=== PATIENT | female | born 1940 | race Caucasian/White ===

== ENCOUNTER 2018-06-20 14:11 | Inpatient (IN) | payer MEDICARE, MEDICAID ==
[~2018-06-20] VITALS: Ht 149.9 cm; Wt 74.7 kg
[2018-06-20] MEDS ORDERED: RIVA15T PO (14:31)
[2018-06-20] MEDS ORDERED: AMLO-511 PO (14:31)
[2018-06-20] MEDS ORDERED: METO25 PO (14:31)
[2018-06-20] MEDS ORDERED: IOVERSOL 350 MG/ML 100 ML VIAL ONE (16:29)
[2018-06-20] MEDS ORDERED: SODIUM CHLORIDE 0.9% 0 ML ONE (16:29)
[2018-06-20 17:44] LABS: BASOPHILS % (AUTO) 0.4 % (0.0-2.0); EOSINOPHILS % (AUTO) 0 % (1.0-6.0); HEMATOCRIT 45.6 % (36-46); LYMPHOCYTES # (AUTO) 0.6 K/uL (1.0-4.8); LYMPHOCYTES % (AUTO) 6.5 % (22.0-44.0); MEAN CORPUSCULAR HEMOGLOBIN 27.7 pg (26.0-34.0); MEAN CORPUSCULAR HGB CONC 32.9 G/dL (31.0-37.0); MEAN CORPUSCULAR VOLUME 84 fL (80-100); MONOCYTES # (AUTO) 0.4 K/uL (0.1-1.0); MONOCYTES % (AUTO) 4.2 % (2.0-9.0); NEUTROPHILS # (AUTO) 8.8 K/uL (1.8-7.7); PLATELET COUNT (AUTO) 213 K/uL (150-450); RED BLOOD CELL COUNT(AUTO) 5.41 MIL/uL (4.00-5.20)
[2018-06-20 17:45] LABS: NEUTROPHILS % (AUTO) 88.9 % (40.0-70.0)
[2018-06-20 17:48] LABS: CALCIUM, TOTAL 9.2 mg/dL (8.8-10.5); CREATININE 1.67 mg/dL (0.60-1.30); POTASSIUM 5.6 mmol/L (3.5-5.1)
[2018-06-20 17:56] LABS: ALBUMIN 3.6 g/dL (3.4-5.0); BILIRUBIN,TOTAL 0.7 mg/dL (0.1-1.0); TOTAL PROTEIN, SERUM 7.8 g/dL (6.4-8.2)
[2018-06-20] MEDS ORDERED: SODIUM CHLORIDE 0.9% 1,000 ML IV ONE ×2 (18:00→18:15)
[2018-06-20 18:23] LABS: GLUCOSE,POINT OF CARE 104 MG/DL (70-110)
[2018-06-20 18:26] LABS: APPEARANCE,URINE CLOUDY (CLEAR); BILIRUBIN,URINE NEGATIVE (NEGATIVE); GLUCOSE, URINE (UA) NEGATIVE (NEGATIVE); KETONES,URINE NEGATIVE (NEGATIVE); LEUKOCYTE ESTERASE ,URINE NEGATIVE (NEGATIVE); NITRATE,URINE NEGATIVE (NEGATIVE); OCCULT BLOOD,URINE NEGATIVE (NEGATIVE); PH,URINE 5.5 (5.0-8.0); PROTEIN,URINE SEE CONFIRM (NEGATIVE)
[2018-06-20 18:29] LABS: SULFOSALICYLIC ACID,URINE 3+ (Negative)
[2018-06-20 18:30] LABS: BACTERIA,URINE Few /HPF (None Seen); RBC,URINE 0-2 /HPF (0-2); SQUAMOUS EPITHELIAL CELL,UR Many /LPF (None Seen)
[2018-06-20] MEDS ORDERED: DiphenhydrAMINE HCL 50 MG/ML VIAL IVP ONE (18:45)
[2018-06-20] MEDS ORDERED: FUROSEMIDE 40 MG/4 ML VIAL IVP ONE (18:45)
[2018-06-20] MEDS ORDERED: LORazepam 2 MG/ML VIAL IVP ONE (19:45)
[2018-06-20 19:47] LABS: INFLUENZA TYPE A NEGATIVE FOR TYPE A (NEGATIVE); INFLUENZA TYPE B NEGATIVE FOR TYPE B (NEGATIVE)
[2018-06-20 21:32] VITALS: BP 136/92
[2018-06-20] MEDS ORDERED: ONDANSETRON HCL 4 MG/2 ML VIAL IVP PRN (21:45)
[2018-06-20] MEDS ORDERED: HYDROCODONE/ACETAMINOPHEN 5-325 MG TABLET PO PRN (21:45)
[2018-06-20] MEDS ORDERED: MORPHINE SULFATE 4 MG/ML SYRINGE IVP PRN (21:45)
[2018-06-20] MEDS ORDERED: MAGNESIUM HYDROXIDE SUSPENSION 30 ML UDCUP PO PRN (21:45)
[2018-06-20] MEDS ORDERED: BISACODYL 10 MG RECTAL RECTAL SUPPOSITORY PR PRN (21:45)
[2018-06-20] MEDS ORDERED: ACETAMINOPHEN 325 MG TABLET PO PRN (21:45)
[2018-06-20] MEDS ORDERED: ZOLPIDEM TARTRATE 5 MG TABLET PO PRN (21:45)
[2018-06-20] MEDS ORDERED: SODIUM POLYSTYRENE SULFONATE 15 GM/60 ML SUSPENSION BOTTLE PO ONE (22:00)
[2018-06-20] MEDS ORDERED: SODIUM POLYSTYRENE SULFONATE 15 GM/60 ML SUSPENSION BOTTLE PR ONE (23:30)
[2018-06-21] MEDS ORDERED: HEPARIN SODIUM,PORCINE 5,000 UNITS/ML VIAL SQ SCH
[2018-06-21 00:15] VITALS: BP 129/74
[2018-06-21] MEDS ORDERED: HALOPERIDOL LACTATE 5 MG/ML VIAL IM PRN (00:30)
[2018-06-21 04:34] VITALS: BP 146/94
[2018-06-21 06:28] LABS: BASOPHILS % (AUTO) 0.1 % (0.0-2.0); EOSINOPHILS % (AUTO) 0 % (1.0-6.0); HEMATOCRIT 43.2 % (36-46); HEMOGLOBIN 14.6 g/dL (12.0-16.0); LYMPHOCYTES # (AUTO) 0.5 K/uL (1.0-4.8); LYMPHOCYTES % (AUTO) 3.5 % (22.0-44.0); MEAN CORPUSCULAR HEMOGLOBIN 28.9 pg (26.0-34.0); MEAN CORPUSCULAR HGB CONC 33.8 G/dL (31.0-37.0); MEAN CORPUSCULAR VOLUME 85 fL (80-100); MONOCYTES # (AUTO) 0.5 K/uL (0.1-1.0); NEUTROPHILS # (AUTO) 12.6 K/uL (1.8-7.7); PLATELET COUNT (AUTO) 172 K/uL (150-450); RED BLOOD CELL COUNT(AUTO) 5.05 MIL/uL (4.00-5.20); RED CELL DISTRIBUTION WIDTH 14.9 % (11.5-14.5)
[2018-06-21 06:31] LABS: NEUTROPHILS % (AUTO) 92.4 % (40.0-70.0)
[2018-06-21 06:56] LABS: CALCIUM, TOTAL 8.8 mg/dL (8.8-10.5); CHOL/HDL RATIO 3.3 (3.9-5.7); CREATININE 2.15 mg/dL (0.60-1.30); POTASSIUM 5.2 mmol/L (3.5-5.1); THYROID STIMULATING HORMONE 1.46 uIU/mL (0.36-3.74)
[2018-06-21] MEDS ORDERED: SODIUM POLYSTYRENE SULFONATE 15 GM/60 ML SUSPENSION BOTTLE PO ONE ×2 (08:15→10:15)
[2018-06-21] MEDS: METOPROLOL TARTRATE 25 MG TABLET PO SCH (08:48)
[2018-06-21] MEDS: DOCUSATE SODIUM 100 MG CAPSULE PO SCH ×2 (08:48→20:35)
[2018-06-21] MEDS: AmLODIPine BESYLATE 5 MG TABLET PO SCH (08:48)
[2018-06-21] MEDS: PANTOPRAZOLE SODIUM 40 MG DR TABLET PO SCH (08:48)
[2018-06-21] MEDS ORDERED: FUROSEMIDE 40 MG/4 ML VIAL IVP SCH (09:00)
[2018-06-21 09:26] VITALS: BP 154/60
[2018-06-21 11:22] VITALS: BP 132/73
[2018-06-21 15:25] VITALS: BP 120/81
[2018-06-21 16:57] LABS: ABG A-A DIFF O2 33.9 mmHg (10-20.0); ABG BASE EXCESS 0.1 mmol/L (-2.0-3.0); ABG CARBOXYHEMOGLOBIN 1.1 % (0.0-1.5); ABG HCO3 24.1 mmol/L (22.0-26.0); ABG METHEMOGLOBIN 0.2 % (0.0-1.5); ABG OXYGEN CONTENT 18.4 mL/dL (15.0-23.0); ABG OXYGEN SATURATION 90.3 % (95.0-98.0); ABG OXYHEMOGLOBIN 89.1 % (94.0-100.0); ABG PCO2 46 mmHg (35-45); ABG PH 7.364 (7.35-7.450); ABG TOTAL HEMOGLOBIN 14.7 G/dL (12.0-18.0); PO2, ARTERIAL BG 61.1 mmHg (75.0-83.0); SOURCE, BLOOD GAS ARTERIAL; TEMPERATURE, FAHRENHEIT, BG 98.6 FAHREN (96.0-98.6)
[2018-06-21 16:59] LABS: SITE, BLOOD GAS RT RADIAL
[2018-06-21] MEDS: RIVAROXABAN 15 MG TABLET PO SCH (18:01)
[2018-06-21 19:41] VITALS: BP 104/72
[2018-06-22] VITALS (7 sets, daily range): BP systolic 106–138; BP diastolic 63–82
[2018-06-22 06:55] LABS: BASOPHILS % (AUTO) 0.3 % (0.0-2.0); EOSINOPHILS % (AUTO) 0 % (1.0-6.0); HEMATOCRIT 45.2 % (36-46); HEMOGLOBIN 15.3 g/dL (12.0-16.0); LYMPHOCYTES # (AUTO) 0.4 K/uL (1.0-4.8); LYMPHOCYTES % (AUTO) 2.9 % (22.0-44.0); MEAN CORPUSCULAR HEMOGLOBIN 28.9 pg (26.0-34.0); MEAN CORPUSCULAR HGB CONC 33.7 G/dL (31.0-37.0); MEAN CORPUSCULAR VOLUME 86 fL (80-100); MONOCYTES # (AUTO) 0.8 K/uL (0.1-1.0); MONOCYTES % (AUTO) 6.3 % (2.0-9.0); NEUTROPHILS # (AUTO) 11.1 K/uL (1.8-7.7); PLATELET COUNT (AUTO) 160 K/uL (150-450); RED BLOOD CELL COUNT(AUTO) 5.29 MIL/uL (4.00-5.20); RED CELL DISTRIBUTION WIDTH 14.9 % (11.5-14.5)
[2018-06-22 07:03] LABS: NEUTROPHILS % (AUTO) 90.5 % (40.0-70.0)
[2018-06-22 07:07] LABS: CALCIUM, TOTAL 8.2 mg/dL (8.8-10.5); CREATININE 1.94 mg/dL (0.60-1.30); MAGNESIUM 2.1 mg/dL (1.80-2.40); PHOSPHORUS 3.9 mg/dL (2.5-4.9); POTASSIUM 3.8 mmol/L (3.5-5.1)
[2018-06-22] MEDS: METOPROLOL TARTRATE 25 MG TABLET PO SCH (07:11)
[2018-06-22] MEDS: PANTOPRAZOLE SODIUM 40 MG DR TABLET PO SCH (08:43)
[2018-06-22] MEDS: AmLODIPine BESYLATE 5 MG TABLET PO SCH (08:43)
[2018-06-22] MEDS: DOCUSATE SODIUM 100 MG CAPSULE PO SCH ×2 (08:43→20:22)
[2018-06-22] MEDS: FUROSEMIDE 20 MG/2 ML VIAL IVP SCH (08:43)
[2018-06-22] MEDS ORDERED: DIGOXIN 250 MCG/ML 2 ML AMP IVP ONE (09:15)
[2018-06-22] MEDS: CARVEDILOL 3.125 MG TABLET PO SCH ×2 (10:38→20:22)
[2018-06-22 12:04] LABS: GLUCOMETER DEV NAME(LOC) 5S 1N; GLUCOSE,POINT OF CARE 112 MG/DL (70-110)
[2018-06-22] MEDS: RIVAROXABAN 15 MG TABLET PO SCH (18:02)
[2018-06-22] MEDS: ISOSORB DINIT/HYDRALAZINE HCL 20-37.5 MG TABLET PO SCH (20:22)
[2018-06-23 05:39] VITALS: BP 123/77
[2018-06-23 07:37] LABS: BASOPHILS % (AUTO) 0.3 % (0.0-2.0); EOSINOPHILS % (AUTO) 0 % (1.0-6.0); HEMATOCRIT 45.8 % (36-46); HEMOGLOBIN 15.2 g/dL (12.0-16.0); LYMPHOCYTES # (AUTO) 0.7 K/uL (1.0-4.8); LYMPHOCYTES % (AUTO) 12.7 % (22.0-44.0); MEAN CORPUSCULAR HEMOGLOBIN 28.4 pg (26.0-34.0); MEAN CORPUSCULAR HGB CONC 33.2 G/dL (31.0-37.0); MEAN CORPUSCULAR VOLUME 85 fL (80-100); MONOCYTES # (AUTO) 0.3 K/uL (0.1-1.0); MONOCYTES % (AUTO) 6.4 % (2.0-9.0); NEUTROPHILS # (AUTO) 4.4 K/uL (1.8-7.7); NEUTROPHILS % (AUTO) 80.6 % (40.0-70.0); PLATELET COUNT (AUTO) 145 K/uL (150-450); RED BLOOD CELL COUNT(AUTO) 5.37 MIL/uL (4.00-5.20); RED CELL DISTRIBUTION WIDTH 14.8 % (11.5-14.5)
[2018-06-23 07:48] LABS: PHOSPHORUS 2.7 mg/dL (2.5-4.9)
[2018-06-23 08:08] LABS: ALBUMIN 2.8 g/dL (3.4-5.0); BILIRUBIN,TOTAL 0.5 mg/dL (0.1-1.0); CALCIUM, TOTAL 8.2 mg/dL (8.8-10.5); CREATININE 1.46 mg/dL (0.60-1.30); POTASSIUM 3.4 mmol/L (3.5-5.1); TOTAL PROTEIN, SERUM 6.4 g/dL (6.4-8.2)
[2018-06-23] MEDS ORDERED: POTASSIUM CHLORIDE 20 MEQ ER TABLET PO ONE (09:00)
[2018-06-23] MEDS: PANTOPRAZOLE SODIUM 40 MG DR TABLET PO SCH (09:17)
[2018-06-23] MEDS: AMIODARONE HCL 200 MG TABLET PO SCH (09:17)
[2018-06-23] MEDS: ASPIRIN 81 MG CHEWABLE TABLET PO SCH (09:17)
[2018-06-23] MEDS: ISOSORB DINIT/HYDRALAZINE HCL 20-37.5 MG TABLET PO SCH ×2 (09:17→19:58)
[2018-06-23] MEDS: CARVEDILOL 3.125 MG TABLET PO SCH ×2 (09:17→19:58)
[2018-06-23] MEDS: DOCUSATE SODIUM 100 MG CAPSULE PO SCH ×2 (09:17→19:57)
[2018-06-23] MEDS: FUROSEMIDE 20 MG/2 ML VIAL IVP SCH (09:17)
[2018-06-23 10:55] VITALS: BP 122/60
[2018-06-23 12:22] LABS: CREATININE,URINE RANDOM 14.2 mg/dL (30.0-125.0)
[2018-06-23 15:47] VITALS: BP 132/82
[2018-06-23] MEDS: RIVAROXABAN 15 MG TABLET PO SCH (18:23)
[2018-06-23 20:06] VITALS: BP 109/72
[2018-06-24] VITALS (15 sets, daily range): BP systolic 102–163; BP diastolic 46–94
[2018-06-24 07:00] LABS: CALCIUM, TOTAL 8.2 mg/dL (8.8-10.5); CREATININE 1.45 mg/dL (0.60-1.30); POTASSIUM 3.9 mmol/L (3.5-5.1)
[2018-06-24] MEDS: ASPIRIN 81 MG CHEWABLE TABLET PO SCH (08:53)
[2018-06-24] MEDS: PANTOPRAZOLE SODIUM 40 MG DR TABLET PO SCH (08:54)
[2018-06-24] MEDS: DOCUSATE SODIUM 100 MG CAPSULE PO SCH ×2 (08:54→20:23)
[2018-06-24] MEDS: FUROSEMIDE 20 MG TABLET PO SCH ×2 (08:54→20:23)
[2018-06-24] MEDS: AMIODARONE HCL 200 MG TABLET PO SCH (08:55)
[2018-06-24] MEDS: CARVEDILOL 3.125 MG TABLET PO SCH ×2 (08:55→20:23)
[2018-06-24] MEDS: ISOSORB DINIT/HYDRALAZINE HCL 20-37.5 MG TABLET PO SCH ×2 (08:55→20:23)
[2018-06-24] MEDS ORDERED: AMIODARONE HCL 150 MG in DEXTROSE 5%-WATER 97 ML IV ONE (10:50)
[2018-06-24] MEDS ORDERED: AMIODARONE HCL 360 MG in DEXTROSE 5%-WATER 242.8 ML IV ONE (11:00)
[2018-06-24 11:10] LABS: APPEARANCE,URINE CLOUDY (CLEAR); BILIRUBIN,URINE NEGATIVE (NEGATIVE); GLUCOSE, URINE (UA) NEGATIVE (NEGATIVE); KETONES,URINE NEGATIVE (NEGATIVE); LEUKOCYTE ESTERASE ,URINE MODERATE (NEGATIVE); NITRATE,URINE NEGATIVE (NEGATIVE); OCCULT BLOOD,URINE NEGATIVE (NEGATIVE); PH,URINE 6.5 (5.0-8.0); PROTEIN,URINE POS 1+ (NEGATIVE)
[2018-06-24 11:46] LABS: BACTERIA,URINE Many /HPF (None Seen); RBC,URINE 0-2 /HPF (0-2); SQUAMOUS EPITHELIAL CELL,UR Few /LPF (None Seen)
[2018-06-24] MEDS: CefTRIAXone SODIUM 1 GM in DEXTROSE 5%-WATER 10 ML IV SCH (13:54)
[2018-06-24] MEDS ORDERED: AMIODARONE HCL 540 MG in DEXTROSE 5%-WATER 239.2 ML IV ONE (17:00)
[2018-06-24] MEDS: RIVAROXABAN 15 MG TABLET PO SCH (18:07)
[2018-06-25] VITALS (7 sets, daily range): BP systolic 121–158; BP diastolic 46–87
[2018-06-25] MEDS: CARVEDILOL 3.125 MG TABLET PO SCH ×2 (08:14→21:02)
[2018-06-25] MEDS: FUROSEMIDE 20 MG TABLET PO SCH ×2 (08:14→21:02)
[2018-06-25] MEDS: ASPIRIN 81 MG CHEWABLE TABLET PO SCH (08:14)
[2018-06-25] MEDS: DOCUSATE SODIUM 100 MG CAPSULE PO SCH ×2 (08:14→21:02)
[2018-06-25] MEDS: PANTOPRAZOLE SODIUM 40 MG DR TABLET PO SCH (08:14)
[2018-06-25] MEDS: ISOSORB DINIT/HYDRALAZINE HCL 20-37.5 MG TABLET PO SCH ×2 (08:15→21:02)
[2018-06-25] MEDS: AMIODARONE HCL 200 MG TABLET PO SCH ×3 (10:58→21:02)
[2018-06-25] MEDS ORDERED: AMIODARONE HCL 750 MG in DEXTROSE 5%-WATER 485 ML IV SCH (11:00)
[2018-06-25] MEDS: CefTRIAXone SODIUM 1 GM in DEXTROSE 5%-WATER 10 ML IV SCH (11:47)
[2018-06-25] MEDS: LOSARTAN POTASSIUM 25 MG TABLET PO SCH ×2 (13:11→21:00)
[2018-06-25] MEDS: RIVAROXABAN 15 MG TABLET PO SCH (16:38)
[2018-06-26 04:50] VITALS: BP 140/59
[2018-06-26 05:48] LABS: BASOPHILS % (AUTO) 0.5 % (0.0-2.0); EOSINOPHILS % (AUTO) 0 % (1.0-6.0); HEMATOCRIT 47.2 % (36-46); HEMOGLOBIN 15.5 g/dL (12.0-16.0); LYMPHOCYTES # (AUTO) 1.1 K/uL (1.0-4.8); LYMPHOCYTES % (AUTO) 15.2 % (22.0-44.0); MEAN CORPUSCULAR HEMOGLOBIN 27.7 pg (26.0-34.0); MEAN CORPUSCULAR HGB CONC 32.9 G/dL (31.0-37.0); MEAN CORPUSCULAR VOLUME 84 fL (80-100); MONOCYTES # (AUTO) 0.5 K/uL (0.1-1.0); MONOCYTES % (AUTO) 7.1 % (2.0-9.0); NEUTROPHILS # (AUTO) 5.7 K/uL (1.8-7.7); NEUTROPHILS % (AUTO) 77.2 % (40.0-70.0); PLATELET COUNT (AUTO) 163 K/uL (150-450); RED CELL DISTRIBUTION WIDTH 14.7 % (11.5-14.5)
[2018-06-26 06:02] LABS: ALBUMIN 3.2 g/dL (3.4-5.0); BILIRUBIN,TOTAL 0.4 mg/dL (0.1-1.0); CALCIUM, TOTAL 8.5 mg/dL (8.8-10.5); CREATININE 1.62 mg/dL (0.60-1.30); POTASSIUM 3.8 mmol/L (3.5-5.1); TOTAL PROTEIN, SERUM 7.1 g/dL (6.4-8.2)
[2018-06-26 07:26] VITALS: BP 116/74
[2018-06-26] MEDS: FUROSEMIDE 20 MG TABLET PO SCH ×2 (08:36→20:42)
[2018-06-26] MEDS: AMIODARONE HCL 200 MG TABLET PO SCH (08:36)
[2018-06-26] MEDS: DOCUSATE SODIUM 100 MG CAPSULE PO SCH ×2 (08:36→20:42)
[2018-06-26] MEDS: ASPIRIN 81 MG CHEWABLE TABLET PO SCH (08:36)
[2018-06-26] MEDS: ISOSORB DINIT/HYDRALAZINE HCL 20-37.5 MG TABLET PO SCH ×2 (08:36→20:42)
[2018-06-26] MEDS: CARVEDILOL 3.125 MG TABLET PO SCH ×2 (08:36→20:41)
[2018-06-26] MEDS: PANTOPRAZOLE SODIUM 40 MG DR TABLET PO SCH (08:36)
[2018-06-26 11:26] VITALS: BP 123/56
[2018-06-26] MEDS: CefTRIAXone SODIUM 1 GM in DEXTROSE 5%-WATER 10 ML IV SCH (11:59)
[2018-06-26] MEDS ORDERED: AMIO200T44 PO (13:23)
[2018-06-26] MEDS ORDERED: CARV3 PO (13:24)
[2018-06-26] MEDS ORDERED: ISOS1TAB2 PO (13:25)
[2018-06-26] MEDS ORDERED: FURO20 PO (13:25)
[2018-06-26] MEDS ORDERED: CEPH500 PO (13:25)
[2018-06-26 15:26] VITALS: BP 126/58
[2018-06-26] MEDS: RIVAROXABAN 15 MG TABLET PO SCH (18:04)
[2018-06-26 19:57] VITALS: BP 124/62
[2018-06-26 23:15] VITALS: BP 121/62
[2018-06-27 03:20] VITALS: BP 132/66
[2018-06-27 06:10] LABS: BASOPHILS % (AUTO) 0.4 % (0.0-2.0); EOSINOPHILS % (AUTO) 0 % (1.0-6.0); HEMATOCRIT 45.6 % (36-46); LYMPHOCYTES # (AUTO) 1.1 K/uL (1.0-4.8); LYMPHOCYTES % (AUTO) 16.9 % (22.0-44.0); MEAN CORPUSCULAR HEMOGLOBIN 27.7 pg (26.0-34.0); MEAN CORPUSCULAR HGB CONC 32.9 G/dL (31.0-37.0); MEAN CORPUSCULAR VOLUME 84 fL (80-100); MONOCYTES # (AUTO) 0.5 K/uL (0.1-1.0); MONOCYTES % (AUTO) 7.5 % (2.0-9.0); NEUTROPHILS % (AUTO) 75.2 % (40.0-70.0); PLATELET COUNT (AUTO) 159 K/uL (150-450); RED BLOOD CELL COUNT(AUTO) 5.41 MIL/uL (4.00-5.20); RED CELL DISTRIBUTION WIDTH 14.7 % (11.5-14.5)
[2018-06-27 06:20] LABS: ALBUMIN 3.2 g/dL (3.4-5.0); BILIRUBIN,TOTAL 0.4 mg/dL (0.1-1.0); CALCIUM, TOTAL 8.6 mg/dL (8.8-10.5); CREATININE 1.62 mg/dL (0.60-1.30); MAGNESIUM 1.9 mg/dL (1.80-2.40); POTASSIUM 3.4 mmol/L (3.5-5.1); TOTAL PROTEIN, SERUM 7.1 g/dL (6.4-8.2)
[2018-06-27 07:07] VITALS: BP 134/68
[2018-06-27] MEDS ORDERED: POTASSIUM CHLORIDE 10 MEQ ER TABLET PO ONE (08:00)
[2018-06-27] MEDS: ISOSORB DINIT/HYDRALAZINE HCL 20-37.5 MG TABLET PO SCH (08:33)
[2018-06-27] MEDS: PANTOPRAZOLE SODIUM 40 MG DR TABLET PO SCH (08:33)
[2018-06-27] MEDS: DOCUSATE SODIUM 100 MG CAPSULE PO SCH (08:34)
[2018-06-27] MEDS: FUROSEMIDE 20 MG TABLET PO SCH (08:34)
[2018-06-27] MEDS: ASPIRIN 81 MG CHEWABLE TABLET PO SCH (08:34)
[2018-06-27] MEDS: CARVEDILOL 3.125 MG TABLET PO SCH (08:34)
[2018-06-27] MEDS ORDERED: AMIODARONE HCL 200 MG TABLET PO SCH (09:00)
[2018-06-27] MEDS ORDERED: POTASSIUM CHLORIDE 20 MEQ ER TABLET PO ONE (09:30)
[2018-06-27 11:10] VITALS: BP 91/58
[2018-06-27] MEDS: CefTRIAXone SODIUM 1 GM in DEXTROSE 5%-WATER 10 ML IV SCH (12:01)
[2018-06-27 15:13] VITALS: BP 141/58
== END 2018-06-27 17:40 | disposition home or self-care (01) | DRG 291 ==
LOC: EMS 14:21 → 5S 18:59
PROVIDERS: ADMIT Internal Medicine; ATTEND Internal Medicine
DX: I13.0 Hypertensive heart and chronic kidney disease with heart failure and stage 1 through stage 4 chronic kidney disease, or unspecified chronic kidney disease (principal); I50.43 Acute on chronic combined systolic (congestive) and diastolic (congestive) heart failure; J98.11 Atelectasis; N17.9 Acute kidney failure, unspecified; N39.0 Urinary tract infection, site not specified; R65.10 Systemic inflammatory response syndrome (SIRS) of non-infectious origin without acute organ dysfunction; N18.3 Chronic kidney disease, stage 3 (moderate); E87.5 Hyperkalemia; E87.6 Hypokalemia; E88.09 Other disorders of plasma-protein metabolism, not elsewhere classified; F02.80 Dementia in other diseases classified elsewhere, unspecified severity, without behavioral disturbance, psychotic disturbance, mood disturbance, and anxiety; G30.9 Alzheimer's disease, unspecified; I08.1 Rheumatic disorders of both mitral and tricuspid valves; I25.10 Atherosclerotic heart disease of native coronary artery without angina pectoris; I48.2 Chronic atrial fibrillation; N26.9 Renal sclerosis, unspecified; Z90.710 Acquired absence of both cervix and uterus
CPT/HCPCS: 70450; 82570; 82805; 82948; 83735; 84100; 84156; 84300; 84443; 87086; 87804; 92610; 93005; 93306; 93970; 96374; 96375; G0378; J0282; J0696; J1160; J1200; J1940; J2060; J7030; J7050; J7060